=== PATIENT | female | born 1975 | race Caucasian/White ===

== ENCOUNTER 2017-03-25 15:24 | Emergency (ER) | payer BC ==
--- NOTE | 2017-03-25 16:53 | RAD ---
INDICATION: Early with bleeding COMPARISON: None TECHNIQUE: Transvaginal scans of the pelvis were obtained for determination. FINDINGS: There is no evidence of intrauterine gestation and therefore in the setting of a positive test ectopic is not excluded. There is no adnexal mass. There is no free fluid. The right ovary measures 2.9 x 2.0 x 1.9 cm in the left 2.4 x 1.8 x 2.0 cm IMPRESSION: NO EVIDENCE OF AN INTRAUTERINE GESTATION. NO ADNEXAL MASS OR FREE FLUID.
[2017-03-25 18:36] LABS: Hematocrit 42 % (35-47); Hemoglobin 14.3 g/dl (12.0-16.0); Mean Corpuscular HGB Conc 34 g/dl (31-36); Mean Corpuscular Hemoglobin 30 pg (27-31); Mean Corpuscular Volume 87 fL (80-97); Mean Platelet Volume 10 um3 (7.4-10.4); Red Blood Count 4.81 10^6/ul (4.0-5.4); Red Cell Distribution Width 13 % (10.5-15); White Blood Count 13.4 10^3/ul (3.5-10.8)
[2017-03-25 19:33] LABS: Albumin 4.4 g/dL (3.2-5.2); BUN/Creatinine Ratio 11.1 (8-20); Calcium 9.6 mg/dL (8.6-10.3); EGFR African American 89.2 (>60); EGFR Non-African American 69.3 (>60); Potassium 3.8 mmol/L (3.5-5.0); Total Bilirubin 0.7 mg/dL (0.2-1.0); Total Protein 7.4 g/dL (6.4-8.9)
[2017-03-25 20:40] VITALS: BP 110/73
--- NOTE | 2017-03-26 00:49 | ED ---
Winston Petersen Angela, scribed for Rubia Byrd MD on 03/25/17 at 2012 . GI/ HPI - HPI Summary HPI Summary: This pt is a 41 y/o female, currently 6 weeks , [place] [facility] c/o abdominal cramping and heaving vaginal bleeding since 1400 today. Pt reports that she is with her third child. She states her mother 3 days ago and has had recent stress. Pt notes she has an upcoming appointment next Wednesday with her OB. LNMP: February 11. Pt denies tobacco, drug or alcohol use. - History of Current Complaint Chief Complaint: EDVaginalBleeding Time Seen by Provider: 03/25/17 19:58 Stated Complaint: HEAVY VAG BLEEDING/6WKS Hx Obtained From: Patient Onset/Duration: Started Hours Ago Timing: Constant Vaginal Bleeding Description: Bright Red Pain Intensity: 6 Associated Signs and Symptoms: Negative: Nausea, Vomiting, Weight Loss, Rectal Pain, UTI Symptoms Additional Signs & Symptoms: Positive: Vaginal Bleeding, Positive Test - Allergy/Home Medications Allergies/Adverse Reactions: Allergies Allergy/AdvReac Type Severity Reaction Status Date / Time Banana Allergy Severe Difficulty Verified 11/19/14 19:04 Breathing/Wheezing PMH/Surg Hx/FS Hx/Imm Hx Endocrine/Hematology History: Reports: Hx Thyroid Disease - mass on Right side of pt's Thyroid, being monitored Neurological History: Reports: Hx Seizures - when patient was 8 years old - Surgical History Surgery Procedure, Year, and Place: L shoulder surgery and tummy tuck 6 years ago Infectious Disease History: No Infectious Disease History: Reports: Hx Shingles Denies: Traveled Outside the [place] in Last 30 Days - Family History Known Family History: Negative: Seizure Disorder - Social History Occupation: Works From/At Home Alcohol Use: None Substance Use Type: Reports: None Smoking Status (MU): Never Smoked Tobacco Review of Systems Negative: Fever, Chills Eyes: Negative ENT: Negative Cardiovascular: Negative Respiratory: Negative Positive: Abdominal Pain - cramping Positive: other - vaginal bleeding Skin: Negative Neurological: Negative All Other Systems Reviewed And Are Negative: Yes Physical Exam Triage Information Reviewed: Yes Vital Signs On Initial Exam: Initial Vitals Temp Pulse Resp BP Pulse Ox 98.3 F 81 17 123/77 98 03/25/17 15:43 03/25/17 15:43 03/25/17 15:43 03/25/17 15:43 03/25/17 15:43 Vital Signs Reviewed: Yes Appearance: Positive: Well-Appearing, No Pain Distress Skin: Positive: Warm, Skin Color Reflects Adequate Perfusion, Dry Eyes: Positive: EOMI, TERRY ENT: Positive: Pharynx normal, TMs normal Neck: Positive: Supple, Nontender Respiratory/Lung Sounds: Positive: Clear to Auscultation, Breath Sounds Present. Negative: Rales, Rhonchi, Wheezes Cardiovascular: Positive: RRR. Negative: Murmur, Rub, Other - gallop Abdomen Description: Positive: Nontender, Soft. Negative: Distended, Guarding, Other: - rebound Bowel Sounds: Positive: Present Pelvic Exam: Positive: other - Mild amount of blood. Closed Os. Musculoskeletal: Positive: Strength/ROM Intact. Negative: Edema Left, Edema Right Neurological: Positive: Sensory/Motor Intact, Alert, Oriented to Person Place, Time, CN Intact II-III Psychiatric: Positive: Affect/Mood Appropriate - Miller Coma Scale Coma Scale Total: 15 Diagnostics - Vital Signs Vital Signs Temp Pulse Resp BP Pulse Ox 03/25/17 19:46 98.3 F 66 16 115/76 99 03/25/17 19:44 115/76 03/25/17 18:17 99.2 F 67 18 123/76 99 03/25/17 16:55 98.7 F 69 18 118/68 96 03/25/17 15:43 98.3 F 81 17 123/77 98 - Laboratory Lab Results: Lab Results 03/25/17 03/25/17 03/25/17 Range/Units 18:26 18:26 18:26 WBC 13.4 H (3.5-10.8) 10^3/ul RBC 4.81 (4.0-5.4) 10^6/ul Hgb 14.3 (12.0-16.0) g/dl Hct 42 (35-47) % MCV 87 (80-97) fL MCH 30 (27-31) pg MCHC 34 (31-36) g/dl RDW 13 (10.5-15) % Plt Count 279 (150-450) 10^3/ul MPV 10 (7.4-10.4) um3 Neut % (Auto) 67.4 (38-83) % Lymph % (Auto) 22.0 L (25-47) % [place]ham % (Auto) 8.4 (1-9) % Eos % (Auto) 1.2 (0-6) % Baso % (Auto) 1.0 (0-2) % Absolute Neuts (auto) 9.0 H (1.5-7.7) 10^3/ul Absolute Lymphs (auto) 2.9 (1.0-4.8) 10^3/ul Absolute Monos (auto) 1.1 H (0-0.8) 10^3/ul Absolute Eos (auto) 0.2 (0-0.6) 10^3/ul Absolute Basos (auto) 0.1 (0-0.2) 10^3/ul Absolute Nucleated RBC 0.01 10^3/ul Nucleated RBC % 0.1 Sodium 138 (133-145) mmol/L Potassium 3.8 (3.5-5.0) mmol/L Chloride 104 (101-111) mmol/L Carbon Dioxide 26 (22-32) mmol/L Anion Gap 8 (2-11) mmol/L BUN 10 (6-24) mg/dL Creatinine 0.90 (0.51-0.95) mg/dL Est GFR ( Amer) 89.2 (>60) Est GFR (Non-Af Amer) 69.3 (>60) BUN/Creatinine Ratio 11.1 (8-20) Glucose 90 (70-100) mg/dL Calcium 9.6 (8.6-10.3) mg/dL Total Bilirubin 0.70 (0.2-1.0) mg/dL AST 13 (13-39) U/L ALT 11 (7-52) U/L Alkaline Phosphatase 49 (34-104) U/L Total Protein 7.4 (6.4-8.9) g/dL Albumin 4.4 (3.2-5.2) g/dL Globulin 3.0 (2-4) g/dL Albumin/Globulin Ratio 1.5 (1-3) Beta HCG, Quant 315.28 mIU/mL Blood Type O Positive Antibody Screen Negative Result Diagrams: 03/25/17 18:26 03/25/17 18:26 Lab Statement: Any lab studies that have been ordered have been reviewed, and results considered in the medical decision making process. - Ultrasound No standard instances Ultrasound Interpretation: No Acute Changes - Preg Transvaginal US: No evidence of an intrauterine gestation. No adnexal mass or free fluid. ED physician has reviewed this radiology report and agrees. Ultrasound Interpretation Completed By: Radiologist SALEEM Course/Dx - Course Course Of Treatment: 41 yo female with vaginal bleeding bhg in the 300's with u/ s showing nothing in the uterus, she had mil bleeding on pelvic exam with a closed cervical os. She was rh+, she will f/u with solar energy engineer closely for early preg vs. miscarriage vs. blighted ovum vs. ectopic - Diagnoses Provider Diagnoses: Threatened miscarriage Discharge - Discharge Plan Condition: Stable Disposition: HOME Patient Education Materials: Threatened Miscarriage (ED) Referrals: Orly Quintero NP [Primary Care Provider] - Additional Instructions: Please follow up with your OBGYN as soon as possible. The documentation as recorded by the Winston nolan Angela accurately reflects the service I personally performed and the decisions made by me, Rubia Byrd MD.
== END 2017-03-25 20:40 | disposition home or self-care (01) ==
LOC: ED 15:24
DX: O20.0 Threatened abortion (principal); Z3A.01 Less than 8 weeks gestation of pregnancy; O99.281 Endocrine, nutritional and metabolic diseases complicating pregnancy, first trimester
CPT/HCPCS: 36415; 76817; 80053; 84702; 85025; 86850; 86900; 86901; 99282

== ENCOUNTER 2018-02-16 10:39 | Inpatient (IN) | payer BC ==
[~2018-02-16 10:39] MED LIST: Buffered Lidocaine 0.9% SYRIN* 5 ML/SYR SYRINGE INTRADERM ONE
[2018-02-16] MEDS ORDERED: fentaNYL* 50 MCG/ML 2 ML VIAL (100 MCG VIAL) ONE ×2 (12:06→14:25)
[2018-02-16] MEDS ORDERED: Famotidine IV* 10 MG/ML 2 ML (20 mg) ONE (12:07)
[2018-02-16] MEDS ORDERED: Midazolam* 1 MG/ML 2 ML VIAL (2 MG) ONE ×2 (12:07→13:20)
[2018-02-16] MEDS ORDERED: DiMENhydriNATE IV* 50 MG/ML VIAL IV PUSH PRN (12:28)
[2018-02-16] MEDS ORDERED: Naloxone* 0.4 MG/ML 1 ML VIAL IV PRN (12:28)
[2018-02-16] MEDS ORDERED: HYDROmorphone INJ* 0.5 MG/0.5 ML SYRINGE IV PRN (12:28)
[2018-02-16] MEDS ORDERED: Scopolamine 1.5 mg* PATCH TRANSDERM PRN (12:28)
[2018-02-16] MEDS ORDERED: Acetaminophen IV 1GM/100ML * 1,000 MG/100 ML VIAL IVPB ONE (12:28)
[2018-02-16] MEDS ORDERED: Ondansetron INJ* 2 MG/ML VIAL IV PRN (12:28)
[2018-02-16] MEDS ORDERED: diPHENhydraMINE IV* 50 MG/ML 1 ml VIAL (BENADRYL) IV PRN (12:28)
[2018-02-16] MEDS ORDERED: PROCHLORPERAZINE INJ 5 MG/ML 2 ML VIAL IV PRN (12:28)
[2018-02-16] MEDS ORDERED: Levalbuterol 0.63MG/3ML NEB* UNIT OF USE INH PRN (12:28)
[2018-02-16] MEDS ORDERED: Nalbuphine* 10 MG/ML 1 ML VIAL IV PRN (12:28)
[2018-02-16] MEDS ORDERED: Bupivacaine 0.25% W/EPI* 10 ML SDV ONE (12:59)
[2018-02-16] MEDS ORDERED: Lidocaine 2% PF * 5 ML VIAL ONE (13:19)
[2018-02-16] MEDS ORDERED: Rocuronium* 10 MG/ML VIAL ONE (13:24)
[2018-02-16] MEDS ORDERED: Hetastarch 6% in NS* 500 ML IV ONE (13:45)
[2018-02-16] MEDS ORDERED: HYDROmorphone INJ* 0.5 MG/0.5 ML SYRINGE ONE (13:50)
[2018-02-16] MEDS ORDERED: EPHEDrine (Pressors)* 50 MG/ML VIAL ONE (14:02)
[2018-02-16] MEDS ORDERED: Propofol* 10 MG/ML 20 ML BTL IV PUSH ONE (14:02)
[2018-02-16] MEDS ORDERED: Ondansetron INJ* 2 MG/ML VIAL ONE (14:02)
[2018-02-16] MEDS ORDERED: Dexamethasone IV* 4 MG/ML 1 ML (4 MG) ONE (14:02)
[2018-02-16] MEDS ORDERED: diPHENhydraMINE IV* 50 MG/ML 1 ml VIAL (BENADRYL) SLOW PUSH PRN (14:58)
[2018-02-16] MEDS ORDERED: HYDROcodone/ACET. 7.5/325 LIQ* 15 ML UDC PO PRN (14:58)
--- NOTE | 2018-02-16 14:58 | BRIEFOPN ---
Brief Operative Note - Surgery Procedures: Procedures Pre-OP Diagnoses: Clinically severe obesity Post-op Diagnosis: same Procedure: Laparoscopic sleeve gastrectomy Surgeon: Emigdio Asst: Ray Anethesia: STEPHANIA Cardoza EBL: minimal IVF: 1500cc LR, 500cc hetastarch Specimen: portion of stomach Drains: none
[2018-02-16] MEDS: fentaNYL* 50 MCG/ML 2 ML VIAL (100 MCG VIAL) IV PRN ×4 (15:23→16:30)
[2018-02-16] MEDS ORDERED: Ketorolac INJ* 30 MG/ML 1 ML VIAL ONE (15:59)
[2018-02-16] MEDS: Ketorolac INJ* 30 MG/ML 1 ML VIAL IV PRN ×2 (18:11→23:53)
[2018-02-16] MEDS: Ondansetron INJ* 2 MG/ML VIAL IV PRN (19:38)
[2018-02-16] MEDS: HYDROmorphone INJ* 2 MG/ML CARPUJECT SYRINGE IV PRN (19:40)
[2018-02-16] MEDS ORDERED: Acetaminophen ADULT LIQ* 650 MG/20.3 ML UDC PO PRN (21:30)
[2018-02-16] MEDS: Famotidine IV* 10 MG/ML 2 ML (20 mg) IV SLOW PU SCH (21:30)
[2018-02-16] MEDS: Heparin VIAL(*) 5000 UNITS/ML VIAL (FIVE THOUSAND) SUBCUT SCH (21:34)
--- NOTE | 2018-02-17 03:26 | OP ---
CC: [facility]; Dr. Orly Quintero. * DATE OF OPERATION: 02/16/18 - ROOM #351 DATE OF : 77 SURGEON: Boogie Beal MD CYCLE MANAGER: MARLO Mcwilliams ANESTHESIOLOGIST: Dr. Cardoza. ANESTHESIA: General. PRE-OP DIAGNOSES: 1. Clinically severe obesity. 2. Obstructive sleep apnea. POST-OP DIAGNOSES: 1. Clinically severe obesity. 2. Obstructive sleep apnea. OPERATIVE PROCEDURE: Laparoscopic sleeve gastrectomy. ESTIMATED BLOOD LOSS: Minimal. FLUID: 1500 cc of crystalloid fluid given and 500 cc hetastarch. SPECIMEN: Portion of the stomach. DRAINS: None. DESCRIPTION OF PROCEDURE: The patient was identified in the preoperative area. I discussed the case with her again and consent was obtained. The patient was marked and taken to the operating room, placed on operating table in supine position. Preoperative antibiotics were given. Sequential devices were placed on bilateral lower extremities. General anesthesia was delivered and the patient's abdomen was prepped and draped in standard surgical fashion. Time- out was performed. Subcostal incision was made at the right upper quadrant. This was deepened down to the anterior fascia, which was elevated, and a Veress needle was inserted into the abdominal cavity, which was then allowed to inflate to pressure of 15 mmHg. The patient tolerated the insufflation well. Veress needle was removed and a 5 mm trocar inserted through the site. The camera was then placed through this and showed no evidence of injury from the trocar insertion. Additional trocar was then placed in following positions: A 12 mm periumbilically and a 12 mm at the right upper quadrant and an additional 5 mm at the left upper quadrant. Review of the abdomen showed some mild adhesions at the left upper quadrant omentum. This was taken down with postoperative blunt dissection. We then placed the table in steep reverse Trendelenburg positioning. The liver appeared intact without any lesion and no evidence of fatty replacement. A Kosta retractor was inserted through the subxiphoid incision and liver was retracted anteriorly into the right. This exposed the gastroesophageal fat pad , which was grasped and retracted towards the right lower quadrant. There was no evidence of hiatal hernia. The fat pad was dissected off the anterior aspect of the stomach and we extended this dissection to the angle of His and exposed the left aurelia with blunt dissection. Next, a retrographic tunnel was made along the greater curvature just 6 cm proximal to the pylorus. The vasculature to the greater curve was then taken with LigaSure device. We took this right up the angle of His and we took posterior attachment similarly until the stomach could be rotated along its axis. Next, a sleeve stomach was created using a 60 mm purple ATIYA stapling device with reinforcing strips firing it from the 6 cm proximal to the pylorus along the greater curvature and extending this towards the incisura. Prior to firing this, a 40-Cameroonian bougie was then inserted beyond this and into the distal stomach. The complete sleeve was performed with addition of 60 mm purple GI stapling device with reinforcement strips. The bougie was then removed. The staple line lay intact. The very first staple line that we fired at the greater curve showed some rolling over of this portion of the greater curvature. There was mild oozing at this site and this was controlled with an Endoclip. Overall, the staple line was free of bleeding. They lay intact and in the appropriate fashion. The liver retractor was removed and the liver fell back on to the sleeve stomach obscuring almost all except the very first staple line. The resected portion of the stomach was then placed in an endoscopic retrieval bag and brought out through the right upper quadrant port site, passed off as specimen. We then allowed the abdomen to collapse. Trocars were all removed under direct vision and all 5 skin incisions were reapproximated with 4-0 Monocryl subcuticular sutures followed by Steri-Strips and sterile dressing. The patient tolerated the procedure well and was transferred to PACU in stable condition. [id number]/[facility] #: [id number] KYA
[2018-02-17] MEDS ORDERED: HYDROmorphone INJ* 0.5 MG/0.5 ML SYRINGE IV PRN (03:59)
[2018-02-17] MEDS: Ondansetron INJ* 2 MG/ML VIAL IV PRN (04:01)
[2018-02-17] MEDS: HYDROmorphone INJ* 2 MG/ML CARPUJECT SYRINGE IV PRN (04:02)
[2018-02-17] MEDS: Ketorolac INJ* 30 MG/ML 1 ML VIAL IV PRN ×2 (05:49→14:19)
[2018-02-17] MEDS: Heparin VIAL(*) 5000 UNITS/ML VIAL (FIVE THOUSAND) SUBCUT SCH ×2 (05:53→14:08)
--- NOTE | 2018-02-17 08:21 | RAD ---
INDICATION: Postoperative gastric sleeve surgery. COMPARISON: None TECHNIQUE: After And was administered per os and digital fluoroscopy was performed with cine loop and digital spot imaging of the distal esophagus, stomach, and proximal small bowel. 30 seconds of fluoroscopy was utilized. Esophagus: The visualized distal esophagus is normal. GE junction: The GE junction is normally positioned. There is no hiatal hernia. There is no gastroesophageal reflux Stomach: There is fine is compatible with gastric sleeve surgery. There are no findings of obstruction or extravasation. Small bowel: Limited imaging of the proximal small bowel is normal. Other: None. IMPRESSION: NORMAL POSTOPERATIVE APPEARANCE FOLLOWING GASTRIC SLEEVE SURGERY. CPT II Codes: G9500 PQRS (Fluoro time doc)
[2018-02-17] MEDS: Famotidine IV* 10 MG/ML 2 ML (20 mg) IV SLOW PU SCH (08:51)
--- NOTE | 2018-02-17 10:19 | PN ---
Progress Note - Progress Note Date of Service: 02/17/18 Note: Surgery Progress: S: POD #1. Seen w/ Dr. Beal. c/o pain in the epigastric area. No N/V. No flatus. Ambulating. O: Vital Signs - 8 hr 02/17/18 02/17/18 02/17/18 04:02 04:32 07:48 Temperature 98.3 F 98.4 F Pulse Rate 48 58 Respiratory 20 16 18 Rate Blood Pressure 140/84 136/71 (mmHg) O2 Sat by Pulse 100 98 Oximetry 02/17/18 08:00 Temperature Pulse Rate Respiratory 18 Rate Blood Pressure (mmHg) O2 Sat by Pulse Oximetry Intake and Output Last 24 Hours 02/15/18 02/16/18 02/17/18 02/18/18 06:59 06:59 06:59 06:59 Intake Total 3550 Output Total 600 200 Balance 2950 -200 Weight 233 lb Intake: IV Fluids 3550 LR 1950 lr 1600 Oral 0 Output: Urine 600 200 Other: Estimated Void Medium # Bowel Movements 0 Gen: WN; NAD Heart: reg Lungs: clear ant Abd: +BS; lap sites w/ small amts of sang drainage; soft; incisional (claudine epigastric) tenderness as would be expected. UGI: normal A: s/p lap sleeve gastrectomy, doing well P: start moisés clears; poss d/c home later today
[2018-02-17] MEDS ORDERED: D5W 1/2 NS KCl 20 Meq 1000 ML* 1,000 ML IV SCH (14:59)
[2018-02-17 18:01] VITALS: BP 125/70
--- NOTE | 2018-02-18 01:56 | DS ---
CC: Autumn Avila NP at [facility].* DISCHARGE SUMMARY: DATE OF ADMISSION: 02/16/18. DATE OF DISCHARGE: 02/17/18. ATTENDING SURGEON: Dr. Boogie Beal.* (DICTATED BY MARLO BARDALES) HOSPITAL COURSE: Please refer to admission history and physical and operative notes for details. The patient was taken to the operating room on 02/16/18 at which time she underwent laparoscopic sleeve gastrectomy with Dr. Beal. Surgery was uneventful. She has followed a fairly predictable postoperative course with a normal upper GI studies the morning of postop day 1. She has done well with bariatric clear liquids and was deemed ready for discharge in the afternoon of 02/17/18. The patient was seen with Dr. Beal the morning of postoperative day 1, vital signs at that time temperature 98.4, blood pressure 136/71, pulse 58, respirations 18, room air saturation 98%. General: Well nourished, in no acute distress. Heart: Regular rate and rhythm. Lungs: Clear to auscultation. Abdomen: Bowel sounds present. Laparoscopic incision sites healing well under dressings with small amounts of sanguinous drainage. Abdomen is soft with tenderness primarily limited to the laparoscopic sites particularly the epigastric incision which is most tender. IMPRESSION: Status post laparoscopic sleeve gastrectomy, doing well and ready for discharge. PLAN: Home today. Instructions were reviewed regarding wound care, activity and diet. She will follow the bariatric eating guidelines. She has a prescription for hydrocodone/APAP liquid as needed. She is already scheduled for followup at the [facility] for metabolic and bariatric surgery. MARLO BARDALES [id number]/[facility] #: [id number] [facility]PITAL[facility]ita
[2018-02-19] MEDS ORDERED: Scopolamine PATCH Remove* 1 NOTE MISC PATCH OFF ONE (12:29)
== END 2018-02-17 19:15 | disposition home or self-care (01) | DRG 403 ==
LOC: AA 10:39 → SSU 17:00
PROVIDERS: ADMIT Surgery; ATTEND Surgery
PROC: 0DB64Z3 Excision of Stomach, Percutaneous Endoscopic Approach, Vertical (ICD-10-PCS; principal; 2018-02-16 12:45)
DX: E66.01 Morbid (severe) obesity due to excess calories (principal); F32.9 Major depressive disorder, single episode, unspecified; G47.33 Obstructive sleep apnea (adult) (pediatric); E04.9 Nontoxic goiter, unspecified; K21.9 Gastro-esophageal reflux disease without esophagitis; Z91.030 Bee allergy status; Z91.018 Allergy to other foods; Z98.51 Tubal ligation status; Z80.9 Family history of malignant neoplasm, unspecified; Z82.49 Family history of ischemic heart disease and other diseases of the circulatory system; Z83.49 Family history of other endocrine, nutritional and metabolic diseases; Z72.89 Other problems related to lifestyle; Z68.34 Body mass index [BMI] 34.0-34.9, adult
CPT/HCPCS: 43775; 74246; 88307; J1100; J1170; J1200; J1644; J1885; J2250; J2405; J2704; J3010